=== PATIENT | male | born 1995 | race Caucasian/White ===

== ENCOUNTER 2025-05-21 08:04 | Day surgery (SDC) | payer OTHER ==
[2025-05-20 14:41] VITALS: BMI 31.2
[2025-05-21] MEDS ORDERED: KETAMINE HCL 100 MG/ML - 5ML VIAL ONE (10:15)
[2025-05-21] MEDS ORDERED: ETOMIDATE 20 MG/10 ML VIAL IVPUSH ONE (10:20)
[2025-05-21 11:35] VITALS: RESP 16; TEMP 97.7
[2025-05-21 11:55] VITALS: BP 144/86; PULSE 80
== END 2025-05-21 11:40 | disposition home or self-care (01) ==
LOC: FECT 08:04
PROVIDERS: ATTEND Student in an Organized Health Care Education/Training Program
PROC: GZB4ZZZ Other Electroconvulsive Therapy (ICD-10-PCS; principal; 2025-05-21 10:28)
DX: F32.A Depression, unspecified (principal)
CPT/HCPCS: 90870; 94760